=== PATIENT | male | born 1990 | race Caucasian/White ===

== ENCOUNTER 2019-03-29 04:52 | Emergency (ER) | payer SELFPAY ==
[2019-03-29] MEDS ORDERED: Ketorolac 60 MG/2 ML SDV IM ONE (05:14)
--- NOTE | 2019-03-29 05:20 | EDM.PDOC ---
ED HPI GENERAL MEDICAL PROBLEM - General Chief Complaint: Headache Stated Complaint: EXTREME TOOTH PAIN Time Seen by Provider: 03/29/19 04:58 Source of Information: Reports: Patient History Limitations: Reports: No Limitations - History of Present Illness INITIAL COMMENTS - FREE TEXT/NARRATIVE: This is a 28-year-old male. Onset of chipping his right back molar more than 2 weeks ago but it started hurting about 2 weeks ago. He has been taking ibuprofen and Aleve and it seems to help it but now that tooth is getting worse. He comes to the ER for evaluation. She denies any drainage from the tooth. He does state that the pain in the tooth is making his right ear hurt as well. No fever no chills no swelling of his face. He is about to go back home on time off and he is going to get his tooth pulled. He denies any nausea or vomiting. 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 Other Treatments FLAMER SEALER: 10 aleve - Related Data Allergies Allergy/AdvReac Type Severity Reaction Status Date / Time No Known Allergies Allergy Verified 03/29/19 05:03 Home Meds: Home Meds Penicillin V Potassium 500 mg PO Q6HR #40 tab 03/29/19 [Rx] traMADol [Ultram] 50 mg PO Q6H PRN #10 tab 03/29/19 [Rx] Past Medical History HEENT History: Reports: None Cardiovascular History: Reports: None Respiratory History: Reports: None Gastrointestinal History: Reports: None Genitourinary History: Reports: None Musculoskeletal History: Reports: None Neurological History: Reports: None Psychiatric History: Reports: None Endocrine/Metabolic History: Reports: None Hematologic History: Reports: None Immunologic History: Reports: None Oncologic (Cancer) History: Reports: None Dermatologic History: Reports: None - Infectious Disease History Infectious Disease History: Reports: None - Past Surgical History Head Surgeries/Procedures: Reports: None HEENT Surgical History: Reports: None Cardiovascular Surgical History: Reports: None Respiratory Surgical History: Reports: None GI Surgical History: Reports: None Male Surgical History: Reports: None Endocrine Surgical History: Reports: None Neurological Surgical History: Reports: None Musculoskeletal Surgical History: Reports: None Oncologic Surgical History: Reports: None Dermatological Surgical History: Reports: None Social & Family History - Family History Family Medical History: Noncontributory - Tobacco Use Smoking Status *Q: Current Every Day Smoker Years of Tobacco use: 15 Packs/Tins Daily: 1.5 - Caffeine Use Caffeine Use: Reports: Coffee, Energy Drinks, Soda - Recreational Drug Use Recreational Drug Use: No ED ROS ENT - Review of Systems Review Of Systems: See Below Constitutional: Denies: Fever, Chills HEENT: Reports: Dental Pain, Ear Pain Respiratory: Reports: No Symptoms Cardiovascular: Reports: No Symptoms Endocrine: Reports: No Symptoms GI/Abdominal: Reports: No Symptoms : Reports: No Symptoms Musculoskeletal: Reports: No Symptoms Skin: Reports: No Symptoms Neurological: Reports: No Symptoms Psychiatric: Reports: No Symptoms ED EXAM, ENT - Physical Exam Exam: See Below Exam Limited By: No Limitations General Appearance: Alert, WD/WN, Mild Distress Eye Exam: Bilateral Eye: Normal Inspection Ears: Normal External Exam, Normal Canal, Normal TMs Nose: Normal Inspection Mouth/Throat: Normal Inspection, Other (Teeth are in poor repair, the right back molar has advanced dental caries and it is almost deteriorated to the gumline, there is no obvious gum swelling there is no soft tissue swelling on the side of the jaw. Teeth are in poor repair.) Head: Normocephalic Neck: Supple, Other (No significant lymphadenopathy at the angle of the jaw) Respiratory/Chest: No Respiratory Distress Back: Full Range of Motion Extremities: Normal Inspection, Normal Range of Motion Neurological: Alert, Oriented Psychiatric: Normal Affect, Normal Mood Skin: Warm, Dry Course - Vital Signs Last Recorded V/S: Last Vital Signs Temp 98.5 F 03/29/19 05:03 Pulse 126 H 03/29/19 05:03 Resp 22 H 03/29/19 05:03 BP 137/100 H 03/29/19 05:03 Pulse Ox 99 03/29/19 05:03 Departure - Departure Time of Disposition: 05:17 Disposition: Home, Self-Care 01 Condition: Fair Clinical Impression: Dental caries, Dental infection, Pain, dental - Discharge Information *PRESCRIPTION DRUG MONITORING PROGRAM REVIEWED*: Not Applicable *COPY OF PRESCRIPTION DRUG MONITORING REPORT IN PATIENT SHANE: Not Applicable Prescriptions: Penicillin V Potassium 500 mg PO Q6HR #40 tab traMADol [Ultram] 50 mg PO Q6H PRN #10 tab PRN Reason: Pain Instructions: Dental Abscess, [id number] Referrals: PCP,Not In Area [Primary Care Provider] - Forms: ED Department Discharge, ED Return to Work/School Form Additional Instructions: Get your antibiotics and your pain medicines tomorrow when [facility] opens and it is over across from [facility], start taking the antibiotics faithfully because as long as the tooth is infected they will probably not remove it, take the medicine as needed for pain, continue with the anti- inflammatories like Aleve to help with the inflammation which will help with the pain, see your dentist when you get home for evaluation of that tooth and possible extraction, return to the ER if needed Sepsis Event Note - Evaluation Sepsis Screening Result: No Definite Risk - Focused Exam Vital Signs: Vital Signs Temp Pulse Resp BP Pulse Ox 03/29/19 05:03 98.5 F 126 H 22 H 137/100 H 99 Date Exam was Performed: 03/29/19 Time Exam was Performed: 05:14
== END 2019-03-29 05:30 | disposition home or self-care (01) ==
LOC: JD.ED 04:52
DX: K04.7 Periapical abscess without sinus (principal); K02.9 Dental caries, unspecified; F17.210 Nicotine dependence, cigarettes, uncomplicated
CPT/HCPCS: 96372; 99283; J1885